=== PATIENT | male | born 1970 | race Caucasian/White ===

== ENCOUNTER 2020-08-20 12:46 | Emergency (ER) | payer OTHER, SELFPAY ==
[2020-08-20 12:56] VITALS: BP 172/92; PULSE 101; RESP 20; TEMP 36.9; O2SAT 99; BMI 24.3
[2020-08-20 14:40] VITALS: BP 150/82; PULSE 87; PULSE 99; RESP 16; O2SAT 98
--- NOTE | 2020-08-20 15:31 | ED_ITS ---
HPI - Anxiety General: Chief Complaint: Anxiety Stated Complaint: HIGH BP, ABNORMAL HEART RATE Time Seen by Provider: 08/20/20 14:40 History of Present Illness: HPI narrative: 49-year-old male presents emergency room complaining of elevated blood pressure anxious racing heart rate. He denies taking any lwcf-bbd-qzvacpo stimulants or ingesting any stimulants or high caffeine sources. He is concerned about his blood pressure being as high as 147/104 at home was slightly higher on initial presentation here. He denies any chest pain. MD complaint: anxiety and heart racing Onset (ago): hour(s) Symptoms: palpitations Severity: mild Place: home Provoking factors: none known Relieving factors: nothing Exacerbating factors: nothing Associated symptoms: Deny anorexia, chest pain, chills, confusion, diaphoresis, fever(s), headache(s), malaise, nausea, palpitations, short of breath, syncope, vomiting or weakness Review of Systems Const: Denies: fever(s), chills, malaise or diaphoresis ENMT: Denies: throat pain, ear or mastoid pain, nasal discharge or nasal congestion Card: Denies: chest pain, palpitations or syncope Resp: Denies: dyspnea, productive cough or non-productive cough GI: Denies: nausea or vomiting : Denies: flank pain, dysuria, urinary frequency or urinary urgency Skin/Breast: Denies: rash or pruritus Neuro: Denies: headache(s) or confusion Physical Exam Const: COMMON NORMALS: no acute distress GENERAL APPEARANCE: cooperative and comfortable ORIENTATION/CONSCIOUSNESS: Yes awake, Yes oriented to person, Yes oriented to place and Yes oriented to time HENMT: COMMON NORMALS: normocephalic, atraumatic and hearing grossly normal bilaterally HEAD & SCALP: normocephalic and atraumatic Neck/C-Spine: COMMON NORMALS: no JVD Resp: COMMON NORMALS: normal respiratory effort, No retractions, No use of accessory muscles and clear to auscultation bilaterally AUSCULTATION: clear to auscultation bilaterally Cardio: COMMON NORMALS: no JVD, regular rate, regular rhythm and No murmurs present (Cardio) RATE: regular rate RHYTHM: regular rhythm GI: COMMON NORMALS: Soft to palpation and No hepatosplenomegaly present AUSCULTATION: Yes normoactive bowel sounds PALPATION: Yes Soft to palpation, No Tenderness to palpation present (GI), No Guarding due to palpation present (GI) and Yes No hepatosplenomegaly present Extremity: COMMON NORMALS: normal to inspection, capillary refill normal, no clubbing, cyanosis or edema, no calf tenderness and no pedal edema Neuro: SENSORIUM/ORIENTATION: Yes oriented to person, Yes oriented to place and Yes oriented to time Skin: COMMON NORMALS: no rashes or lesions noted GENERAL SKIN EXAM: no rashes or lesions noted Course Vital Signs: Vital signs: Vital Signs Temperature 98.5 F 08/20/20 12:56 Pulse Rate 82 08/20/20 17:18 Respiratory Rate 18 08/20/20 17:18 Blood Pressure 128/88 08/20/20 17:18 Pulse Oximetry 95 08/20/20 17:18 MDM - Anxiety MDM Narrative: Medical decision making narrative: Patient feeling much better amount of blood pressure is down. We will discharge him home on lisinopril and amlodipine discussed with him both her low starting dose was given degree of hypertension when he first arrived I think he be better served by to low-dose medications to minimize side effects and better control blood pressure. He needs to follow-up with his primary care doctor within the week to reevaluate blood pressure. Lab Data: Labs: Lab Results 08/20/20 08/20/20 Range/Units 15:45 15:45 WBC 14.4 H (4.0-10.0) 10^3/ uL RBC 5.86 H (4.1-5.3) 10^6/u L Hgb 17.8 H (11.7-16.6) g/dL Hct 51.5 (42.0-52.0) % MCV 87.9 (80-94) fL MCH 30.4 (28.0-34.0) pg MCHC 34.6 (30.0-36.0) g/dL RDW 12.4 (12.1-15.1) % Plt Count 352 (130-400) 10^3/c mm MPV 10.4 (7.4-10.4) fL Neut % (Auto) 89.4 % Lymph % (Auto) 5.8 % [place] % (Auto) 3.7 % Eos % (Auto) 0.3 % Baso % (Auto) 0.4 % Neut # (Auto) 12.88 H (1.8-7.7) 10^3/u L Lymph # (Auto) 0.8 (0.8-4.8) 10^3/u L [place] # (Auto) 0.5 (0.2-0.9) 10^3/u L Eos # (Auto) 0.0 (0.0-0.8) 10^3/u L Baso # (Auto) 0.1 (0.0-0.1) 10^3/u L Nucleated RBC % (a uto) 0 % Nucleated RBCs # 0.0 /100WBC Sodium 138 (136-145) mmol/L Potassium 4.1 (3.5-5.1) mmol/L Chloride 99 (98-107) mmol/L Carbon Dioxide 26 (22-29) mmol/L Anion Gap 17.1 (5-19) BUN 8 (6-20) mg/dL Creatinine 0.9 (0.7-1.2) mg/dL GFR Calculation 90.1 (90-130) mL/min Glucose 105 (65-115) mg/dL Calculated Osmolal ity 285 (285-295) mOsm/k g Calcium 9.4 (8.5-10.5) mg/dL Discharge Plan Discharge Patient Disposition: Home Clinical Impression: Hypertension Condition: Stable Prescriptions: New amlodipine 5 mg tablet 5 mg PO DAILY Qty: 30 RF: 0 lisinopril 10 mg tablet 10 mg PO DAILY Qty: 30 RF: 0 No Action Tylenol 8 Hour 650 mg Tablet Extended Release 1,300 mg PO PRN RF: 0 Pepcid 20 mg Tablet 20 mg PO DAILY PRN (Reason: Acid Reflux) RF: 0 Aleve 220 mg Tablet 220 mg PO PRN RF: 0 ibuprofen 200 mg Tablet 400 - 800 mg PO PRN RF: 0 Tums See Rx Instructions .ROUTE .COMPLEX RF: 0 Discharge Orders: Discharge ED (Routine); Ordered 08/20/20 Ordered By: Mehdi Pate Discharge Diet: Usual diet Discharge Activity: Increase activity as tolerated Patient Instructions: Opioid Safety Activity Restrictions/Additional Instructions: Follow-up with your primary care doctor to recheck your blood pressure within the next week. Coding Level of Care Code ED Special Event Assistant for Kavin Fwd Exam Comprehensive
[2020-08-20] MEDS: metoprolol tartrate 25 mg Tablet PO (15:37)
[2020-08-20] MEDS: metoprolol tartrate 1 mg/1 mL SDV 5 mL 2.5 MG IV (15:37)
[2020-08-20] MEDS: amlodipine 5 mg Tablet PO (15:37)
[2020-08-20 16:24] LABS: Basophils # 0.1 10^3/uL (0.0-0.1); Basophils % 0.4 %; Eosinophils % 0.3 %; Hematocrit 51.5 % (42.0-52.0); Hemoglobin 17.8 g/dL (11.7-16.6); Lymphocytes # 0.8 10^3/uL (0.8-4.8); Lymphocytes % 5.8 %; Mean Corpuscular HGB Conc 34.6 g/dL (30.0-36.0); Mean Corpuscular Hemoglobin 30.4 pg (28.0-34.0); Mean Corpuscular Volume 87.9 fL (80-94); Mean Platelet Volume 10.4 fL (7.4-10.4); Monocytes # 0.5 10^3/uL (0.2-0.9); Monocytes % 3.7 %; Neutrophils # 12.88 10^3/uL (1.8-7.7); Neutrophils % 89.4 %; Nucleated Red Blood Cells % 0 %; Platelet Count 352 10^3/cmm (130-400); Red Blood Count 5.86 10^6/uL (4.1-5.3); Red Cell Distribution Width 12.4 % (12.1-15.1); White Blood Count 14.4 10^3/uL (4.0-10.0)
[2020-08-20 16:59] LABS: Anion Gap 17.1 (5-19); Blood Urea Nitrogen 8 mg/dL (6-20); Calcium 9.4 mg/dL (8.5-10.5); Carbon Dioxide 26 mmol/L (22-29); Chloride 99 mmol/L (98-107); Glomerular Filtration Rate 90.1 mL/min (90-130); Glucose 105 mg/dL (65-115); Osmolality Calculated 285 mOsm/kg (285-295); Potassium 4.1 mmol/L (3.5-5.1); Sodium 138 mmol/L (136-145)
[2020-08-20 17:00] VITALS: BP 128/88; PULSE 82; RESP 18; O2SAT 95
[2020-08-20 17:18] VITALS: BP 128/88; PULSE 82; RESP 18; O2SAT 95
== END 2020-08-20 17:19 | disposition home or self-care (01) ==
PROVIDERS: Emergency Provider Family Medicine
DX: I10 Essential (primary) hypertension (principal)
CPT/HCPCS: 80048; 85025; 96374; 99284; J3490

== ENCOUNTER 2021-09-26 09:38 | Emergency (ER) | payer OTHER, SELFPAY ==
--- NOTE | 2021-09-26 10:05 | XRR_ITS ---
PROCEDURE INFORMATION: Exam: XR Chest Exam date and time: 09/26/2021 10:17 AM Age: 50 years old Clinical indication: Pain; Angina pectoris; Additional info: Chest pain TECHNIQUE: Imaging protocol: XR of the chest. Views: 1 view. COMPARISON: CT abdomen pelvis w con* [id number] 10/31/2018 10:40 AM FINDINGS: Lungs: Unremarkable. No consolidation. Pleural spaces: Unremarkable. No pleural effusion. No pneumothorax. Heart/Mediastinum: Unremarkable. No cardiomegaly. Bones/joints: Old healed left clavicle fracture. XR/XR chest 1V portable [id number] IMPRESSION: No acute findings.
[2021-09-26 10:07] VITALS: BP 154/97; RESP 18; O2SAT 98; BMI 22.8
[2021-09-26] MEDS: aspirin 81 mg Chew Tablet 324 MG PO (10:30)
[2021-09-26 10:43] LABS: Basophils % 0.3 %; Eosinophils # 0.1 10^3/uL (0.0-0.8); Hematocrit 45.6 % (42.0-52.0); Hemoglobin 15.9 g/dL (11.7-16.6); Lymphocytes % 16.7 %; Mean Corpuscular HGB Conc 34.9 g/dL (30.0-36.0); Mean Corpuscular Hemoglobin 31.1 pg (28.0-34.0); Mean Corpuscular Volume 89.1 fl (80-94); Mean Platelet Volume 10.5 fL (7.4-10.4); Monocytes # 0.6 10^3/uL (0.2-0.9); Neutrophils # 4.43 10^3/uL (1.8-7.7); Neutrophils % 71.4 %; Nucleated Red Blood Cells % 0 %; Platelet Count 316 10^3/cmm (130-400); Red Blood Count 5.12 10^6/uL (4.1-5.3); Red Cell Distribution Width 12.5 % (12.1-15.1); White Blood Count 6.2 10^3/uL (4.0-10.0)
[2021-09-26 11:12] LABS: Alanine Aminotransferase 9 U/L (0-41); Albumin Level 5.1 g/dL (3.5-5.2); Alkaline Phosphatase 79 IU/L (40-130); Anion Gap 15.5 (5-19); Aspartate Amino Transferase 22 U/L (0-40); Blood Urea Nitrogen 7 mg/dL (6-20); Calcium 8.8 mg/dL (8.5-10.5); Carbon Dioxide 24 mmol/L (22-29); Chloride 96 mmol/L (98-107); Globulin 2.4 g/dL (1.3-4.6); Glomerular Filtration Rate 102.7 mL/min (90-130); Glucose 127 mg/dL (65-115); Osmolality Calculated 274 mOsm/kg (285-295); Potassium 3.5 mmol/L (3.5-5.1); Sodium 132 mmol/L (136-145); Total Bilirubin 0.9 mg/dL (0.15-1.2); Total Protein 7.5 g/dL (6.6-8.7)
[2021-09-26 11:13] LABS: Troponin(5th) Baseline 7 ng/L (0-15)
[2021-09-26 11:15] VITALS: BP 139/95; PULSE 76; RESP 18; O2SAT 99
--- NOTE | 2021-09-26 11:30 | ED_ITS ---
HPI - Chest Pain General: Chief Complaint: Chest Pain Stated Complaint: Chest Pain Time Seen by Provider: 09/26/21 09:59 Source: patient Mode of arrival: ambulatory Limitations: no limitations History of Present Illness: 50-year-old male presents emergency room complains of intermittent chest pain last few seconds at a time in the left upper chest does not radiate he has no associated shortness of breath or nausea. He is have several episodes today prior to arrival. He has not noticed anything that seems to precipitate or relieve it. Patient is not diabetic MD complaint: chest pain Onset (ago): minute(s) Timing of current episode: episodic Prior episodes: No Onset: during rest Pain location: left chest Pain radiation: none Severity: mild Associated symptoms: Deny abdominal pain, diaphoresis, dyspnea, fever(s), leg edema, nausea, palpitations, sense of impending doom, syncope or vomiting Treatment prior to arrival: none Review of Systems Const: Denies: fever(s), chills or diaphoresis ENMT: Denies: throat pain, ear or mastoid pain, nasal discharge or nasal congestion Card: Reports: chest pain; Denies: palpitations, irregular heart rhythm, edema, swelling of feet/ankles, lightheadedness or syncope Resp: Denies: dyspnea GI: Denies: abdominal pain, nausea or vomiting : Denies: flank pain, difficulty urinating, dysuria, urinary frequency or urinary urgency Skin/Breast: Denies: rash or pruritus Neuro: Denies: headache(s) PFS ED PFSH: Medical History (Updated 09/26/21 @ 13:47 by Mehdi Pate DO) Gastroesophageal reflux disease Hypertension Social History (Updated 09/26/21 @ 11:36 by Mehdi Pate DO) Smoking and tobacco status: current every day smoker Physical Exam Const: COMMON NORMALS: no acute distress GENERAL APPEARANCE: cooperative and comfortable ORIENTATION/CONSCIOUSNESS: Yes awake, Yes oriented to person, Yes oriented to place and Yes oriented to time HENMT: COMMON NORMALS: normocephalic, atraumatic and hearing grossly normal bilaterally HEAD & SCALP: normocephalic and atraumatic Neck/C-Spine: COMMON NORMALS: no JVD Resp: COMMON NORMALS: normal respiratory effort, No retractions, No use of accessory muscles and clear to auscultation bilaterally AUSCULTATION: clear to auscultation bilaterally Cardio: COMMON NORMALS: no JVD, regular rate, regular rhythm and No murmurs present (Cardio) RATE: regular rate RHYTHM: regular rhythm GI: COMMON NORMALS: Soft to palpation and No hepatosplenomegaly present AUSCULTATION: Yes normoactive bowel sounds PALPATION: Yes Soft to palpation, No Tenderness to palpation present (GI), No Guarding due to palpation present (GI) and Yes No hepatosplenomegaly present Extremity: COMMON NORMALS: normal to inspection, capillary refill normal, no clubbing, cyanosis or edema, no calf tenderness and no pedal edema Neuro: SENSORIUM/ORIENTATION: Yes oriented to person, Yes oriented to place and Yes oriented to time Skin: COMMON NORMALS: no rashes or lesions noted GENERAL SKIN EXAM: no rashes or lesions noted Course Vital Signs: Vital signs: Vital Signs Pulse Rate 84 09/26/21 13:00 Respiratory Rate 16 09/26/21 13:00 Blood Pressure 132/86 09/26/21 13:00 Pulse Oximetry 98 09/26/21 13:00 MDM - Chest Pain Medical Decision Making EKG and troponins are negative. Will discharge patient home he states has not been using his Nexium regularly of late. Instead he uses it more just is not as needed reviewed with him that for Nexium needs to be taken daily if he wants to use something. He can switch to Tums or Rolaids Pepcid etc. He wishes to restart the Nexium follow-up as needed fizzing worsening symptoms return we will also get him set up for a graded exercise stress test to complete the work-up as an outpatient Medical Records I reviewed the patient's medical records. Lab Data I reviewed the patient's lab results. : 09/26/21 10:00 09/26/21 10:00 Radiology Impressions Chest X-Ray 09/26/21 10:05 IMPRESSION: No acute findings. Laboratory Results WBC 6.2 10^3/uL (4.0-10.0) 09/26/21 10:00 RBC 5.12 10^6/uL (4.1-5.3) 09/26/21 10:00 Hgb 15.9 g/dL (11.7-16.6) 09/26/21 10:00 Hct 45.6 % (42.0-52.0) 09/26/21 10:00 MCV 89.1 fl (80-94) 09/26/21 10:00 MCH 31.1 pg (28.0-34.0) 09/26/21 10:00 MCHC 34.9 g/dL (30.0-36.0) 09/26/21 10:00 RDW 12.5 % (12.1-15.1) 09/26/21 10:00 Plt Count 316 10^3/cmm (130-400) 09/26/21 10:00 MPV 10.5 fL (7.4-10.4) H 09/26/21 10:00 Neut % (Auto) 71.4 % 09/26/21 10:00 Lymph % (Auto) 16.7 % 09/26/21 10:00 [place] % (Auto) 10.0 % 09/26/21 10:00 Eos % (Auto) 1.0 % 09/26/21 10:00 Baso % (Auto) 0.3 % 09/26/21 10:00 Neut # (Auto) 4.43 10^3/uL (1.8-7.7) 09/26/21 10:00 Lymph # (Auto) 1.0 10^3/uL (0.8-4.8) 09/26/21 10:00 [place] # (Auto) 0.6 10^3/uL (0.2-0.9) 09/26/21 10:00 Eos # (Auto) 0.1 10^3/uL (0.0-0.8) 09/26/21 10:00 Baso # (Auto) 0.0 10^3/uL (0.0-0.1) 09/26/21 10:00 Nucleated RBC % (auto) 0 % 09/26/21 10:00 Nucleated RBCs # 0.0 /100WBC 09/26/21 10:00 Sodium 132 mmol/L (136-145) L 09/26/21 10:00 Potassium 3.5 mmol/L (3.5-5.1) 09/26/21 10:00 Chloride 96 mmol/L (98-107) L 09/26/21 10:00 Carbon Dioxide 24 mmol/L (22-29) 09/26/21 10:00 Anion Gap 15.5 (5-19) 09/26/21 10:00 BUN 7 mg/dL (6-20) 09/26/21 10:00 Creatinine 0.8 mg/dL (0.7-1.2) 09/26/21 10:00 GFR Calculation 102.7 mL/min (90-130) 09/26/21 10:00 Glucose 127 mg/dL (65-115) H 09/26/21 10:00 Calculated Osmolality 274 mOsm/kg (285-295) L 09/26/21 10:00 Calcium 8.8 mg/dL (8.5-10.5) 09/26/21 10:00 Total Bilirubin 0.9 mg/dL (0.15-1.2) 09/26/21 10:00 AST 22 U/L (0-40) 09/26/21 10:00 ALT 9 U/L (0-41) 09/26/21 10:00 Alkaline Phosphatase 79 IU/L (40-130) 09/26/21 10:00 Troponin T Baseline 7 ng/L (0-15) 09/26/21 10:00 Troponin T 120 Minute 6.99 ng/L (0-15) 09/26/21 12:11 Delta Troponin T -0.01 ABS# (0-10) L 09/26/21 12:11 Total Protein 7.5 g/dL (6.6-8.7) 09/26/21 10:00 Albumin 5.1 g/dL (3.5-5.2) 09/26/21 10:00 Globulin 2.4 g/dL (1.3-4.6) 09/26/21 10:00 Discharge Plan Discharge Patient Disposition: Home Clinical Impression: Atypical chest pain, GERD (gastroesophageal reflux disease) Condition: Stable Prescriptions: No Action acetaminophen [Tylenol 8 Hour] 650 mg Tablet Extended Release 1,300 mg PO DAILY PRN (Reason: Pain) 0RF losartan 25 mg tablet 25 mg PO DAILY 0RF Nexium 24HR 20 mg Capsule,Delayed Release(Dr/Ec) 20 mg PO DAILY PRN (Reason: Acid Reflux) 0RF Discharge Orders: Discharge ED (Routine); Ordered 09/26/21 Ordered By: Mehdi Pate Discharge Diet: Usual diet Discharge Activity: Increase activity as tolerated Patient Instructions: Opioid Safety Activity Restrictions/Additional Instructions: Resume Nexium take it daily. Follow-up with primary care if persists or worsens. Case management will call to set you up for a exercise stress test. Coding Level of Care Code ED Technical Coordinator for Maryg Fwd Exam Comprehensive
[2021-09-26 11:45] VITALS: BP 135/90; PULSE 76; RESP 16; O2SAT 98
--- NOTE | 2021-09-26 12:05 | ECG_ITS ---
[facility] Test Date: 2021-09-26 Pat Name: Tomas Medina Department: Room: Gender: Male Claims Administrator: : 1970 Requested By: Mehdi Fabian Order Number: [id number] Mike MD: Nathen Pearson M.D. Measurements Intervals [place] Rate: 80 P: 72 HI: 159 QRS: 59 QRSD: 88 T: 55 QT: 344 QTc: 398 Interpretive Statements SINUS RHYTHM Compared to ECG 09/26/2021 09:51:25 No significant changes Electronically Signed On 09-26-2021 20:54:32 CDT by Nathen Pearson M.D. [email or web address] [email or web address].[email or web address]/store/[id number]
[2021-09-26 12:15] VITALS: BP 152/89; PULSE 73; RESP 16; O2SAT 98
[2021-09-26 12:30] VITALS: BP 142/98; PULSE 79; RESP 16; O2SAT 98
[2021-09-26 12:42] LABS: Troponin 5 2HR 6.99 ng/L (0-15)
[2021-09-26 13:00] VITALS: BP 132/86; PULSE 84; RESP 16; O2SAT 98
[2021-09-26 13:00] LABS: Troponin 5 2HR Delta -0.01 ABS# (0-10)
--- NOTE | 2021-09-26 16:05 | ECG_ITS ---
[facility] Test Date: 2021-09-26 Pat Name: Tomas Medina Department: Room: Gender: Male Miniature Set Constructor: : 1970 Requested By: Mehdi Fabian Order Number: [id number] Mike MD: Nathen Pearson M.D. Measurements Intervals [place] Rate: 94 P: 95 OR: 161 QRS: 73 QRSD: 86 T: 62 QT: 324 QTc: 406 Interpretive Statements SINUS RHYTHM No previous ECG available for comparison Electronically Signed On 09-26-2021 20:54:59 CDT by Nathen Pearson M.D. [id number]
--- NOTE | 2021-10-16 11:05 | DCPLANNER ---
Addendum entered by Samanta Bunn 01/17/22 11:19: Patient had a stress test scheduled for 11.15.21 - patient did attend appointment. Addendum entered by Samanta Bunn 11/03/21 13:20: Patient has an outpatient stress test scheduled for Saturday, November 15, 2021 at 9:15, centralized scheduling will call patient with appointment information. Original Note: hourly manager had message to schedule an outpatient stress test for patient. hourly manager spoke with patient, he stated that he did want the stress test ordered and that he sees Dr. Rosa at [facility]. hourly manager faxed signed order for stress test to centralized scheduling, who will call patient with appointment information.
== END 2021-09-26 14:03 | disposition home or self-care (01) ==
PROVIDERS: Emergency Provider Family Medicine
DX: R07.89 Other chest pain (principal); F17.210 Nicotine dependence, cigarettes, uncomplicated; K21.9 Gastro-esophageal reflux disease without esophagitis
CPT/HCPCS: 71045; 80053; 84484; 85025; 93005; 99284

== ENCOUNTER 2021-11-15 11:49 | Outpatient (CLI) | payer OTHER, SELFPAY ==
[2021-11-15 12:28] VITALS: BMI 23.1
--- NOTE | 2021-11-15 12:38 | ECG_ITS ---
[facility] Test Date: 2021-11-15 Pat Name: Tomas Medina Department: Room: Gender: Male Distributing Clerk: Veronica Tobin : 1970 Requested By: Mehdi Fabian Order Number: [id number] Mike MD: Gavin Mai M.D. Interpretive Statements NAME OF STUDY: TREADMILL STRESS TEST INDICATION: Chest Pain, PROCEDURE: At the baseline, the patient's blood pressure was 142/97 with a heart rate of 75. The baseline electrocardiogram showed normal sinus rhythm with normal ST-Ts.. The patient exercised for 10 minutes and 30 seconds on a standard Oziel protocol. Patient attained a maximum heart rate of 154 beats per minute( 90 % of the maximum predicted heart rate) with a blood pressure at the peak exercise of 189/105 mm Hg. The EKG at the peak exercise revealed no significant changes. Patient did not have any chest pain or any significant cardiac arrhythmias with the exercise During the recovery phase, there were no new changes. Blood pressure at the end of the recovery phase was 153/97 mm Hg with a heart rate of 89 per minute. CONCLUSION: 1. Normal EKG response to treadmill exercise 2. No exercise-induced chest pain or cardiac arrhythmia. Hypertensive response to exercise 3. Good exercise tolerance, attained a maximum of 13.5 METs Electronically Signed On 11-17-2021 14:51:40 CDT by Gavin Mai M.D. [id number]
[2021-11-15 13:01] VITALS: BP 153/97; PULSE 93
== END 2021-11-15 11:50 | disposition home or self-care (01) ==
LOC: CDL 11:51
PROVIDERS: PCP Family Medicine; Visit Provider Family Medicine
DX: R07.9 Chest pain, unspecified (principal)
CPT/HCPCS: 93017

== ENCOUNTER 2023-03-27 14:00 | Outpatient (CLI) | payer OTHER, SELFPAY | END 2023-03-27 14:01 | disposition home or self-care (01) | LOC: SLEEP 03-28 08:42 | PROVIDERS: PCP Family Medicine; Visit Provider Family Medicine | DX: G47.33 Obstructive sleep apnea (adult) (pediatric) (principal) | CPT/HCPCS: G0399 ==

== ENCOUNTER 2023-05-08 14:36 | Outpatient (CLI) | payer OTHER, SELFPAY ==
--- NOTE | 2023-05-08 14:45 | USCV_ITS ---
Tomas Medina Age: 52 Gender: M : 1970 Exam Date: 05/08/2023 14:44 Ordering Phys: Srinivas Cohen MD Technologist: [place] [facility] [place] Indication: dizziness Risk Factors: Previous Vascular Surgery: Right Brachial BP: / Left Brachial BP: / Right Left Velocity (cm/s) Spectral Plaque Velocity (cm/s) Spectral Plaque Syst/Diast Broadening Syst/Diast Broadening 129.00/29.80 Prox CCA 111.00/ 27.10 116.90/28.70 Mid CCA 97.50 / 25.90 75.20/ 26.00 Distal CCA 75.30 / 25.40 71.60/ 16.10 Prox ICA 76.20 / 21.00 39.00/ 13.60 Mid ICA 63.90 / 22.80 58.00/ 20.60 Distal ICA 56.50 / 28.90 95.80 ECA 107.70 0.56 ICA/CCA 0.69 Antegrade Vertebral Antegrade 42.30/ 13.90 cm/s 65.70/ 22.30 cm/s Tri Subclavian Tri 109.9 185.3 0 0 CONCLUSIONS Right ICA stenosis <50%. Mild atheromatous plaque right carotid bulb/ICA. Left ICA stenosis <50%. Mild atheromatous plaque left carotid bulb/ICA. Normal antegrade Doppler flow noted in the right vertebral artery. Normal antegrade Doppler flow noted in the left vertebral artery. Melquiades Mota MD (Electronically Signed) Final Date: 08 May 2023 15:59 S
== END 2023-05-08 14:37 | disposition home or self-care (01) ==
PROVIDERS: PCP Family Medicine; Visit Provider Psychiatry & Neurology Neurology
DX: R42 Dizziness and giddiness (principal); I65.23 Occlusion and stenosis of bilateral carotid arteries
CPT/HCPCS: 93880

== ENCOUNTER 2023-06-05 08:55 | Outpatient (CLI) | payer OTHER, SELFPAY ==
--- NOTE | 2023-06-05 09:15 | USCV_ITS ---
Tomas Medina Age: 52 Gender: M : 1970 Exam Date: 06/05/2023 09:12 Ordering Phys: Gavin Mai MD ([email or web address]) Technologist: [place] [facility] [place] CP BP: 140 / 101 HR: 80 Rhythm: Sinus Technical Quality: Adequate MEASUREMENTS (Male / Female) Normal Values 2D ECHO LVOT Diameter 2.1 cm LV Ejection Fraction MOD 2C 57.9 % LV Ejection Fraction 2C AL 56.9 % LA Diameter 3.6 cm Aorta at Sinotubular Diameter 2.7 cm IVC Diameter 1.2 cm M-MODE Aortic Annulus Diameter 3.2 cm LA Ao Ratio MM 1.3 MV E Point Septal Separation 0.9 cm DOPPLER AV Peak Velocity 126.0 cm/s LVOT Peak Velocity 101.0 cm/s AV Area Cont Eq vti 3.2 cm squared AV Area Cont Eq pk 2.8 cm squared MV Area PHT 3.2 cm squared Mitral E to A Ratio 1.0 MV E' Velocity 36.5 cm/s Mitral E to MV E' Ratio 5.2 Mitral E to LV E' Lateral Ratio 4.5 Mitral E to LV E' Septal Ratio 6.0 TR Peak Velocity 112.7 cm/s TR Peak Gradient 5.1 mmHg TV Peak E Velocity 74.0 cm/s Right Atrial Pressure 3.0 mmHg Pulmonary Artery Systolic Pressu 8.1 mmHg PV Peak Velocity 144.0 cm/s FINDINGS Left Ventricle Normal left ventricular size and systolic function, EF 55 %. No regional wall motion abnormalities. Right Ventricle The right ventricle is normal in size and function. Right Atrium The right atrium is normal in size. Left Atrium The left atrium is normal in size. Mitral Valve No gross abnormalities noted Aortic Valve No gross abnormalities noted Tricuspid Valve No gross abnormalities noted Pulmonic Valve No gross abnormalities noted Pericardium Normal pericardium without effusion. Aorta Normal ascending aorta dimension. IVC Normal inferior vena cava. CONCLUSIONS Normal left ventricular size and systolic function, EF 55 %. No regional wall motion abnormalities. Normal cardiac chamber sizes. No gross valvular abnormalities noted. No intracardiac masses. There is no pericardial effusion. No similar previous studies are available for comparison Dr Gavin Mia MD [facility] (Electronically Signed) Final Date: 07 June 2023 19:25 S
== END 2023-06-05 08:56 | disposition home or self-care (01) ==
LOC: RAD 08:56
PROVIDERS: PCP Family Medicine; Visit Provider Internal Medicine Cardiovascular Disease
DX: R06.09 Other forms of dyspnea (principal); R07.9 Chest pain, unspecified
CPT/HCPCS: 93306

== ENCOUNTER 2023-06-06 13:28 | Outpatient (CLI) | payer OTHER, SELFPAY ==
--- NOTE | 2023-06-06 13:45 | MR_ITS ---
WS: [id number] MRI CERVICAL SPINE with and without contrast. HISTORY: R42 - Dizziness and giddiness COMPARISON: None available. Technique: Multiplanar, multisequence noncontrast imaging of the cervical spine. Postcontrast imaging MultiHance 16 mL IV. Normal cervical alignment with no compression fracture or significant disc space narrowing. Signal within the cervical cord is normal. Visualized posterior fossa is unremarkable. Craniocervical junction, C1 and C2 relationship, odontoid process and soft tissues are normal. C2-C3: Normal. C3-C4: Mild osteophytosis and disc bulging with a shallow central disc protrusion. No stenosis. Small disc osteophytes extend into the neural foramina causing mild encroachment. C4-C5: No stenosis. C5-C6: No stenosis. C6-C7: Normal. C7-T1: Normal. Normal paravertebral soft tissues. No discitis or osteomyelitis. No enhancing masses. IMPRESSION: 1. No high-grade central or foraminal stenosis. 2. Osteophytic ridging and annular disc bulging at C3-4 with a central disc protrusion. Mild bilatera l foraminal encroachment. 3. No mass or abnormal enhancement.
[2023-06-06] MEDS: gadobenate dimeglumine 20 mL vial IV (14:27)
== END 2023-06-06 13:29 | disposition home or self-care (01) ==
LOC: RAD 13:29
PROVIDERS: PCP Family Medicine; Visit Provider Psychiatry & Neurology Neurology
DX: M54.2 Cervicalgia (principal); R42 Dizziness and giddiness; M50.31 Other cervical disc degeneration, high cervical region
CPT/HCPCS: 72156; A9577

== ENCOUNTER 2023-09-11 16:37 | Outpatient (CLI) | payer OTHER, SELFPAY ==
--- NOTE | 2023-09-11 16:45 | MR_ITS ---
WS: [id number] MRI BRAIN WITH AND WITHOUT CONTRAST HISTORY: R42 - Dizziness and giddiness COMPARISON: None available. TECHNIQUE: Multiplanar imaging performed through the brain with MultiHance 15 ml's IV. No acute infarcts are seen. Rock-white matter differentiation is well preserved. Normal hippocampal f ormations. No susceptibility artifacts or prior lacunar infarcts. Ventricles and extra-axial spaces are normal. Clivus and pituitary gland are normal. Visualized posterior fossa and brainstem are also normal. Postcontrast images are negative for masses or vascular malformations. Dural venous sinuses are normal. Paranasal sinuses: Well aerated with no significant disease. Mastoid air cells: Normal. Calvarium and scalp: Normal. IMPRESSION: 1. Normal MRI brain with contrast. 2. No prior infarct or hemorrhage. No enhancing mass.
[2023-09-11] MEDS: gadobenate dimeglumine 20 mL vial IV (16:59)
== END 2023-09-11 16:38 | disposition home or self-care (01) ==
LOC: RAD 16:38
PROVIDERS: PCP Family Medicine; Visit Provider Psychiatry & Neurology Neurology
DX: R42 Dizziness and giddiness (principal)
CPT/HCPCS: 70553; A9577

== ENCOUNTER → 2023-11-20 15:05 | Outpatient (BNVA) | payer OTHER, SELFPAY | PROVIDERS: PCP Family Medicine; Visit Provider Psychiatry & Neurology Neurology | DX: I10 Essential (primary) hypertension (principal); R42 Dizziness and giddiness; R07.89 Other chest pain; I49.9 Cardiac arrhythmia, unspecified; R25.8 Other abnormal involuntary movements | CPT/HCPCS: 36415; 82306; 82525; 82607; 82746; 83735; 83921; 84207; 84425; 84439; 84443; 84481; 84591; 86376; 86592; 86800 ==